=== PATIENT | male | born 1990 | race African-American/Black ===

== ENCOUNTER 2019-02-11 15:31 | Emergency (ER) | payer MEDICAID, OTHER ==
[~2019-02-11] VITALS: Ht 190.5 cm; Wt 95.3 kg
[~2019-02-11 15:31] MED LIST: CYCLOBENZAPRINE10 MG ORAL; IBUPROFEN600 MG ORAL; NKM; NORCO 5-325 TA1 EACH ORAL
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
[2019-02-11 16:01] VITALS: BP 132/74
[2019-02-11] MEDS ORDERED: Methocarbamol 750mg tab ORAL ONE (16:15)
[2019-02-11] MEDS ORDERED: Ketorolac 30mg Inj IM ONE (16:15)
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
[2019-02-11] MEDS ORDERED: ROBAXIN-500MG ORAL (16:56)
[2019-02-11] MEDS ORDERED: IBU800 MG PO (16:56)
[2019-02-11] MEDS ORDERED: LIDODERM700 M1 TOPIC (16:56)
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
[2019-02-11 17:15] VITALS: BP 132/74
--- NOTE | 2019-02-11 17:15 | NUR ---
ER DISCHARGE NOTE: Pt cleared for d/c per ERMD. Pt discharge instructions provided with prescription instructions. Pt education done via discussion and handouts. Pt advised to follow up with pcp or return to the ed if symptoms worsen. Pt verbalized understanding. Vital signs stable. ambulatory with steady gait. Pt left with all belongings. Id band removed.
== END 2019-02-11 17:15 | disposition home or self-care (01) ==
LOC: EMR 16:55
DX: S33.5XXA Sprain of ligaments of lumbar spine, initial encounter (principal); S13.4XXA Sprain of ligaments of cervical spine, initial encounter; V49.9XXA Car occupant (driver) (passenger) injured in unspecified traffic accident, initial encounter; Y92.410 Unspecified street and highway as the place of occurrence of the external cause
CPT/HCPCS: 72020; 96372; J1885; Z7502; 99283